=== PATIENT | male | born 1970 | race Caucasian/White ===

== ENCOUNTER 2016-10-27 20:01 | Emergency (ER) | payer BC ==
[2016-10-27] MEDS ORDERED: CIPRO500 M1 PO (20:03)
[2016-10-27] MEDS ORDERED: FLOMAX 0.40.4 MG/CAP PO (20:03)
[2016-10-27] MEDS ORDERED: XANAX 0.5MG0.5 MG PO (21:15)
== END 2016-10-27 21:35 | disposition home or self-care (01) ==
LOC: ED 20:01
DX: K21.9 Gastro-esophageal reflux disease without esophagitis (principal); F41.9 Anxiety disorder, unspecified; F17.210 Nicotine dependence, cigarettes, uncomplicated

== ENCOUNTER → 2017-12-11 | Day surgery (SDC) | payer BC ==
[2017-11-21 16:24] VITALS: BP 118/75
[~2017-12-11] MED LIST: CIPRO500 M1 PO; FLAGYL500 M1 PO; FLOMAX 0.40.4 MG/CAP PO; KETOROLAC10 MG PO; NORCO 325 MG-51 TA1 PO; PEPCID AC10 M2 PO; XANAX 0.5MG0.5 MG PO; ZOFRAN ODT8 M1 PO
== END ==
LOC: MSO 08:47
DX: K22.70 Barrett's esophagus without dysplasia (principal); K57.92 Diverticulitis of intestine, part unspecified, without perforation or abscess without bleeding; K21.9 Gastro-esophageal reflux disease without esophagitis; R19.4 Change in bowel habit; F41.9 Anxiety disorder, unspecified; I10 Essential (primary) hypertension; F17.210 Nicotine dependence, cigarettes, uncomplicated
CPT/HCPCS: 00813; A4649; J2704; J3010; J7120